=== PATIENT | male | born 2000 | race Two or more races ===

== ENCOUNTER 2024-07-20 20:08 | Emergency (ER) | payer BC, OTHER ==
[~2024-07-20] VITALS: Ht 170.2 cm; Wt 61.2 kg
[2024-07-20] MEDS ORDERED: ETOMIDATE 2 MG/ML VIAL ONE (20:59)
[2024-07-20] MEDS: ETOMIDATE 2 MG/ML VIAL IV ONE (23:38)
[2024-07-20] MEDS ORDERED: GABA-532 PO (23:45)
[2024-07-21 00:17] VITALS: BP 138/77; TEMP 98.8; O2SAT 99
== END 2024-07-21 00:18 | disposition home or self-care (01) ==
LOC: ER 20:10
DX: S83.005A Unspecified dislocation of left patella, initial encounter (principal); Z79.899 Other long term (current) drug therapy; Z88.6 Allergy status to analgesic agent; X58.XXXA Exposure to other specified factors, initial encounter; Y93.89 Activity, other specified; Y92.89 Other specified places as the place of occurrence of the external cause; Y99.8 Other external cause status
CPT/HCPCS: 99285; 96374; 73564 ×2; 73560; J3490; G0500; J7030